=== PATIENT | female | born 1950 | race Caucasian/White ===

== ENCOUNTER → 2018-05-30 | Outpatient (CLI) | payer MEDICARE | END | disposition home or self-care (01) | LOC: PCVCCLINIC 15:21 | PROVIDERS: ATTEND Internal Medicine | DX: I44.7 Left bundle-branch block, unspecified (principal); E78.5 Hyperlipidemia, unspecified; Z88.0 Allergy status to penicillin; Z88.6 Allergy status to analgesic agent | CPT/HCPCS: 36415; 80061; 93005; G0463 ==

== ENCOUNTER → 2018-06-13 | Outpatient (CLI) | payer MEDICARE ==
[~2018-06-13] MED LIST: REGADENOSON 0.4 MG/5 ML DISP.SYRIN. IV ONE
--- NOTE | 2018-06-13 09:12 | PCVCIMAG ---
APPROVED REPORT Study performed: 06/13/2018 07:46:25 EXAM: Comprehensive 2D, Doppler, and color-flow Echocardiogram Patient Location: Echo lab Status: routine BSA: 1.77 HR: 71 bpmBP: 122/76 mmHg Rhythm: NSR Other Information Study Quality: Adequate Indications Abnormal ECG LBBB 2D Dimensions IVSd: 10.63 (7-11mm) LVDd: 45.62 mm PWd: 9.01 (7-11mm)Ascending Ao: 34.45 (22-36mm) LVDs: 33.06 (25-40mm) Left Atrium: 32.36 (27-40mm) Aortic Root: 29.37 mm LV Single Plane 4CH: 52.19 % LV Single Plane 2CH: 49.65 % Biplane EF: 51.0 % Volumes Left Atrial Volume (Systole) Single Plane 4CH: 56.51 mLSingle Plane 2CH: 56.91 mL LA ESV Index: 33.00 mL/m2 Aortic Valve AoV Peak Russ.: 1.73 m/s AO Peak Gr.: 11.99 mmHgLVOT Max P.58 mmHg LVOT Max V: 0.95 m/s Mitral Valve E/A Ratio: 1.2 MV Decel. Time: 208.04 ms MV E Max Russ.: 0.82 m/s MV A Russ.: 0.66 m/s IVRT: 100.35 ms Pulmonary Valve PV Peak Russ.: 0.81 m/sPV Peak Gr.: 2.63 mmHg Pulmonary Vein P Vein S: 0.28 m/sP Vein A: 0.32 m/s P Vein D: 0.49 m/sP Vein A Dur.: 107.3 msec P Vein S/D Ratio: 0.57 Tricuspid Valve TR Peak Russ.: 2.48 m/s TR Peak Gr.: 24.63 mmHg TV Vmax: 0.52 m/s Left Ventricle The left ventricle is normal size. There is normal LV segmental wall motion. There is normal left ventricular wall thickness. Left ventricular systolic function is normal. The left ventricular ejection fraction is within the normal range. LVEF is 50-55%. The left ventricular diastolic function is normal. Right Ventricle The right ventricle is normal size. The right ventricular systolic function is normal. Atria The left atrium size is normal. The right atrium size is normal. Aortic Valve The aortic valve is normal in structure. Trace aortic regurgitation. There is no aortic valvular stenosis. Mitral Valve The mitral valve is normal in structure. No mitral regurgitation. No evidence of mitral valve stenosis. Tricuspid Valve The tricuspid valve is normal in structure. Mild tricuspid regurgitation with PAP of 32 mmHg. Pulmonic Valve The pulmonary valve is normal in structure. There is no pulmonic valvular regurgitation. Great Vessels The aortic root is normal in size. IVC is normal in size and collapses >50% with inspiration. Pericardium There is no pericardial effusion. There is no pleural effusion. <Conclusion> Left ventricular systolic function is normal. There is normal LV segmental wall motion. LVEF is 50-55%. The aortic valve is normal in structure. Trace aortic regurgitation, no stenosis. The mitral valve is normal in structure. No mitral regurgitation. Mild tricuspid regurgitation with pulmonary artery pressure of 32 mmHg. There is no pericardial effusion.
--- NOTE | 2018-06-13 12:49 | PCVCIMAG ---
APPROVED REPORT Imaging Protocol: Rest Tc-99m/Stress Tc-99m 1 day Study performed: 06/13/2018 09:00:07 Indication: Abnormal EKG, Dyspnea, LBBB Patient Location: Out-Patient Stress Nurse: Chelsi Dickinson RN, Lizzette Islas RN [place] Tech:Madison LUCAS ZaragozaMT Ht: 5 ft 5 in Wt: 155 lbs BSA: 1.77 m2 HR: 74 bpm BP: 143/78 mmHg BMI: 25.7 Rhythm: Sinus Rhythm, LBBB Medical History Medical History: Hyperlipidemia, LBBB, Age Medications: Lipitor, Slow Mag Allergies: PCN, Morphine Pretest Chest Pain Characteristics: No chest pain Exercise History: Physically active Resting Data Rest SPECT myocardial perfusion imaging was performed in supine position 45 minutes following the intravenous injection of 10.3 mCi of Tc-99m Sestamibi. Time of rest injection: 829 Administration Route: IV Administration Site: Right Hand Pharmacologic Stress Pharmacologic stress test was performed by injecting Regadenoson 0.4 mg IV push over 10-15 seconds immediately followed by the intravenous injection of 34 mCi of Tc-99m Sestamibi. Time of stress injection: 929 Date: 06/13/2018 Administration Route: IV Administration Site: Right Hand Gated Stress SPECT was performed 45 minutes after stress injection. The images were gated to evaluate regional wall motion and calculate left ventricular ejection fraction. Stress Test Details Stress Test: Pharmacologic stress was paired with low level exercise. Reason for pharmacologic stress test: LBBB. HRMax Heart Rate (APMHR): 152 bpm Resting HR: 74 bpmTarget HR (85% APMHR): 129 bpm Max HR Achieved: 120 bpm % of APMHR: 78 Recovery HR: 82 bpm BP Resting BP: 143/78 mmHg Max BP: 140/80 mmHg Recovery BP: 148/83 mmHg ECG Resting ECG: Sinus Rhythm, LBBB Stress ECG: Sinus Rhythm, LBBB ST Change: Nondiagnostic V-pacing or LBBB Arrhythmia: None Recovery ECG: Sinus Rhythm, LBBB Recovery ST Change: Nondiagnostic V-pacing or LBBB Clinical Reason for Termination: Completed protocol Stress Symptoms: Leg Fatigue Exercise duration: 4 min 00 sec Exercise capacity: 1.6 METs Symptoms resolved with caffeine. Stress ECG Conclusion ECG: Nondiagnostic due to LBBB Clinical: Non-ischemic Study Quality Study: Good Study Data Post stress, the left ventricular ejection was 66%.. SSS: 2 SRS: 4 SDS: 0 TID = 1.06. Perfusion No evidence of stress induced ischemia or prior myocardial infarction. Wall Motion Normal left ventricular size and function with no regional wall motion abnormalities. Nuclear Conclusion No evidence of stress induced ischemia or prior myocardial infarction. Normal left ventricular size and function with no regional wall motion abnormalities. Post stress, the left ventricular ejection was 66%. No prior study available for comparison. Interpreted by: Peter Soto MD Electronically Approved: 06/13/2018 12:27:42 <Conclusion> ECG: Nondiagnostic due to LBBB Clinical: Non-ischemic
== END | disposition home or self-care (01) ==
LOC: PCVCIMAG 07:59
PROVIDERS: ATTEND Internal Medicine
DX: I07.1 Rheumatic tricuspid insufficiency (principal); I44.7 Left bundle-branch block, unspecified; R94.31 Abnormal electrocardiogram [ECG] [EKG]; R06.00 Dyspnea, unspecified
CPT/HCPCS: 78452; 93017; 93306; A9500; J2785